=== PATIENT | female | born 1960 | race Caucasian/White ===

== ENCOUNTER 2016-10-19 13:33 | Inpatient (IN) | payer OTHER ==
[2016-10-19] VITALS (8 sets, daily range): BP systolic 128–191; BP diastolic 63–89; PULSE 68–86; RESP 12–20; TEMP 97.9; O2SAT 92–100
[~2016-10-19] VITALS: Ht 165.1 cm; Wt 80.7 kg
[~2016-10-19 13:33] MED LIST: GABA400C5 PO; MACR100C PO; NEXI40CA PO; PHEN-426 PO; SYMB80AE INH; ZOLP1TAB32 PO; [UNRECOGNIZED DRUG - OTHER]
[2016-10-19] MEDS ORDERED: MORPHINE SULFATE 4 MG/ML INJ IV PUSH ONE (13:45)
[2016-10-19] MEDS ORDERED: LORazepam 2 MG/ML VIAL IV PUSH ONE (13:45)
[2016-10-19] MEDS ORDERED: SODIUM CHLORIDE 0.9% FLUSH 5 ML FLUSH IVF PRN ×2 (13:45→16:45)
[2016-10-19] MEDS ORDERED: ONDANSETRON HCL 4 MG/2 ML VIAL IV PUSH ONE (13:45)
[2016-10-19] MEDS ORDERED: CLON1TAB PO (13:46)
[2016-10-19] MEDS ORDERED: VENTAER INH (13:46)
[2016-10-19] MEDS ORDERED: CLON0.5T PO (13:46)
[2016-10-19] MEDS ORDERED: NEXI40CA PO (13:46)
[2016-10-19] MEDS ORDERED: GABA800T PO (13:46)
--- NOTE | 2016-10-19 13:50 | PD ---
HPI Chief Complaint: Fall Time Seen by Provider: 13:46 Travel History International Travel<30 days: No Contact w/Intl Traveler<30days: No Traveled to known affect area: No History of Present Illness HPI Patient comes in complaining of right hip pain status post trip and fall. Patient denies any chest pain pre-or post fall. Denies hitting her head or loss of consciousness. Patient describes pain as severe pain in her right hip that radiates distally. Pain is worse with movement. Patient denies anything making the pain better. Denies any numbness or tingling, loss of bowel or bladder, being on any blood thinners, nausea, vomiting, shortness of breath, or syncope. Patient states that she does have vertigo and this may partially caused her to fall today. Patient was reportedly given 8 mg of morphine IV prior to arrival by EMS with minimal to no relief of her symptoms. PFSH Past Medical History Arthritis: Yes Asthma: Yes Diabetes: No Diminished Hearing: No GERD: Yes Musculoskeletal: Yes Tetanus Vaccination: Unknown ?: Not Past Surgical History Other Surgery: Yes (LEFT BREAST BIOPSY) Social History Alcohol Use: No Tobacco Use: Yes (/2 PPD) Substance Use: No Allergies-Medications (Allergen,Severity, Reaction): Coded Allergies: No Known Allergies (Verified , 10/19/16) Reported Meds & Prescriptions Reported Meds & Active Scripts Active Reported Ventolin Hfa 18 GM Inh (Albuterol Sulfate) 90 Mcg/Act Aer 2 Puff INH Q4-6H PRN Clonazepam 1 Mg Tab 1 Mg PO DAILY Clonazepam 0.5 Mg Tab 0.5 Mg PO HS Nexium (Esomeprazole DR) 40 Mg Capdr 40 Mg PO DAILY Gabapentin 800 Mg Tab 800 Mg PO TID Review of Systems Except as stated in HPI: all other systems reviewed are Neg Physical Exam Narrative GENERAL: Well-developed, overly nourished, in no acute distress, and non-ill appearing. SKIN: Warm and dry. HEAD: Atraumatic. Normocephalic. EYES: Pupils equal and round. EOMI. No scleral icterus. No injection or drainage. ENT: No nasal bleeding or discharge. Mucous membranes pink and moist. NECK: Trachea midline. Supple. No nuclear rigidity. CARDIOVASCULAR: Regular rate and rhythm. No murmur appreciated. Dorsal pulses 2+ and intact and equal bilaterally. No pedal edema. RESPIRATORY: No accessory muscle use. No respiratory distress. Clear to auscultation. Breath sounds equal bilaterally. MUSCULOSKELETAL: No obvious deformities. No clubbing. No cyanosis. No edema. Decreased range of motion right hip secondary to pain. Hip: Pulses equal BL distal to injury. Capillary refill less than 2 seconds distal to injury and equal BL. Sensation intact to her first web space bilateral lower extremities. Dorsal pulses equal BL. Patient reports tenderness to palpation over right hip. Patient will not allow me to fully evaluate her hip and distal to her hip secondary to pain thus limiting this exam. NEUROLOGICAL: Awake and alert. No obvious cranial nerve deficits. Motor grossly within normal limits. Normal speech. PSYCHIATRIC: Appropriate mood and affect; insight and judgment normal. Data Data Last Documented VS Vital Signs Date Time Temp Pulse Resp B/P Pulse Ox O2 Delivery O2 Flow Rate FiO2 10/19/16 16:09 16 10/19/16 16:00 98 Room Air 10/19/16 15:17 74 152/81 10/19/16 13:38 97.9 Orders Hip, Uni(Ap&Lat) W Ap Pelvis (10/19/16 ) Basic Metabolic Panel (Bmp) (10/19/16 13:43) Complete Blood Count With Diff (10/19/16 13:43) Prothrombin Time / Inr (Pt) (10/19/16 13:43) Act Partial Throm Time (Ptt) (10/19/16 13:43) Ecg Monitoring (10/19/16 13:43) Iv Access Insert/Monitor (10/19/16 13:43) Oximetry (10/19/16 13:43) Morphine Inj (Morphine Inj) (10/19/16 13:45) Sodium Chloride 0.9% Flush (Ns Flush) (10/19/16 13:45) Ondansetron Inj (Zofran Inj) (10/19/16 13:45) Lorazepam Inj (Ativan Inj) (10/19/16 13:45) Hydromorphone Pf Inj (Dilaudid Pf Inj) (10/19/16 15:15) Sodium Chlor 0.9% 1000 Ml Inj (Ns 1000 M (10/19/16 15:15) Electrocardiogram (10/19/16 ) Chest, Single Ap (10/19/16 ) Traction (10/19/16 15:37) Consult Orthopedic (10/19/16 ) Hydromorphone Pf Inj (Dilaudid Pf Inj) (10/19/16 16:30) Labs Laboratory Tests Test 10/19/16 14:00 White Blood Count 16.2 TH/MM3 Red Blood Count 4.44 MIL/MM3 Hemoglobin 12.6 GM/DL Hematocrit 38.5 % Mean Corpuscular Volume 86.8 FL Mean Corpuscular Hemoglobin 28.3 PG Mean Corpuscular Hemoglobin 32.6 % Concent Red Cell Distribution Width 14.7 % Platelet Count 359 TH/MM3 Mean Platelet Volume 9.5 FL Neutrophils (%) (Auto) 62.9 % Lymphocytes (%) (Auto) 30.1 % Monocytes (%) (Auto) 5.0 % Eosinophils (%) (Auto) 1.4 % Basophils (%) (Auto) 0.6 % Neutrophils # (Auto) 10.2 TH/MM3 Lymphocytes # (Auto) 4.9 TH/MM3 Monocytes # (Auto) 0.8 TH/MM3 Eosinophils # (Auto) 0.2 TH/MM3 Basophils # (Auto) 0.1 TH/MM3 CBC Comment DIFF FINAL Differential Comment Prothrombin Time 10.6 SEC Prothromb Time International 1.0 RATIO Ratio Activated Partial 26.4 SEC Thromboplast Time Sodium Level 138 MEQ/L Potassium Level 3.9 MEQ/L Chloride Level 104 MEQ/L Carbon Dioxide Level 27.5 MEQ/L Anion Gap 7 MEQ/L Blood Urea Nitrogen 9 MG/DL Creatinine 0.78 MG/DL Estimat Glomerular Filtration 77 ML/MIN Rate Random Glucose 90 MG/DL Calcium Level 8.1 MG/DL MDM Medical Decision Making Medical Screen Exam Complete: Yes Emergency Medical Condition: Yes Differential Diagnosis Fracture, dislocation, contusion, other Narrative Course She was seen and examined. Laboratory and radiological studies were obtained and reviewed. Discussed patient with orthopedics who recommends admission for surgery tomorrow. Discussed patient with hospitalist who agrees to admit the patient. Discussed patient with Dr. Hazel, who is in agreement with plan of care and disposition. Discussed all findings and plan of care with patient who is agreeable for admission. All questions were answered. Physician Communication Physician Communication [phone] Cote's ANN Martins who recommends placement patient 5 pound [place] traction, nothing by mouth after midnight, admit to medicine. Diagnosis Primary Impression: Closed right hip fracture Qualified Code: S72.001A - Closed right hip fracture, initial encounter Admitting Information Admitting Physician Requests: Admit Condition: Stable Farhan Ley Oct 19, 2016 13:50
[2016-10-19 14:47] LABS: AUTOMATED NEUTROPHIL # 10.2 TH/MM3 (1.8-7.7); BASOPHIL # 0.1 TH/MM3 (0-0.2); BASOPHIL % 0.6 % (0.0-2.0); EOSINOPHIL # 0.2 TH/MM3 (0-0.4); EOSINOPHIL % 1.4 % (0.0-4.0); HEMATOCRIT 38.5 % (35.0-46.0); HEMO FLAGS DIFF FINAL; LYMPH % 30.1 % (9.0-44.0); LYMPHOCYTE # 4.9 TH/MM3 (1.0-4.8); MEAN CELL VOLUME 86.8 FL (80.0-100.0); MEAN CORPUSCULAR HEMOGLOBIN 28.3 PG (27.0-34.0); MEAN CORPUSCULAR HGB CONC 32.6 % (32.0-36.0); NEUT % 62.9 % (16.0-70.0); PLATELET COUNT 359 TH/MM3 (150-450); RED BLOOD COUNT 4.44 MIL/MM3 (4.00-5.30); RED CELL DISTRIBUTION WIDTH 14.7 % (11.6-17.2); WHITE BLOOD COUNT 16.2 TH/MM3 (4.0-11.0)
[2016-10-19 14:58] LABS: PROTHROMBIN TIME - PATIENT 10.6 SEC (9.8-11.6)
[2016-10-19 15:15] LABS: BICARBONATE 27.5 MEQ/L (21.0-32.0); POTASSIUM 3.9 MEQ/L (3.5-5.1)
[2016-10-19] MEDS ORDERED: HYDROmorphone HCL PF 1 MG/ML VIAL IV PUSH ONE ×2 (15:15→16:30)
[2016-10-19] MEDS ORDERED: SODIUM CHLOR 0.9% 1000 ML INJ 1,000 ML IV ONE (15:15)
[2016-10-19 15:23] LABS: APTT (PATIENT) 26.4 SEC (24.3-30.1)
--- NOTE | 2016-10-19 15:53 | RADRPT ---
EXAM DATE/TIME: 10/19/2016 14:40 [facility] COMPARISON: No previous studies available for comparison. INDICATIONS : Fell today MEDICAL HISTORY : None. SURGICAL HISTORY : None. ENCOUNTER: Initial ACUITY: 1 day PAIN SCORE: 10/10 LOCATION: Right hip FINDINGS: There is an acute displaced anterior trochanteric fracture of the right proximal femur. CONCLUSION: Acute displaced intertrochanteric fracture of the right proximal femur. Gregory Deleon MD on October 19, 2016 at 15:46 Board Certified Radiologist. This report was verified electronically.
--- NOTE | 2016-10-19 16:30 | RADRPT ---
EXAM DATE/TIME: 10/19/2016 13:50 [facility] COMPARISON: No previous studies available for comparison. INDICATIONS : Evaluate for pneumonia, pneumothorax, or any communicable diseases. MEDICAL HISTORY : None. SURGICAL HISTORY : None. ENCOUNTER: Initial ACUITY: 1 day PAIN SCORE: 0/10 LOCATION: Bilateral chest FINDINGS: The heart is normal. The pulmonary vascular pattern is also normal. The lungs are clear. Scoliosis of the thoracic spine is noted. CONCLUSION: 1. No acute cardiopulmonary disease. 2. Scoliosis of the thoracic spine. Gregory Deleon MD on October 19, 2016 at 16:24 Board Certified Radiologist. This report was verified electronically.
[2016-10-19] MEDS ORDERED: MORPHINE SULFATE 8 MG/ML INJ IV PUSH PRN (16:45)
[2016-10-19] MEDS ORDERED: ONDANSETRON HCL 4 MG/2 ML VIAL IVP PRN (16:45)
[2016-10-19] MEDS ORDERED: diphenhydrAMINE HCL 25 MG CAP PO PRN (16:45)
[2016-10-19] MEDS ORDERED: ACETAMINOPHEN 325 MG TAB PO PRN (16:45)
[2016-10-19] MEDS ORDERED: ALBUTEROL SULFATE 90 MCG/ACT HFA 8 GM INHALER INH PRN (16:45)
[2016-10-19] MEDS ORDERED: NALOXONE HCL 0.4 MG/ML AMP IV PRN (16:45)
--- NOTE | 2016-10-19 16:53 | HHI.HP ---
HPI Service [facility] Primary Care Physician Marquise Vargas MD Admission Diagnosis right hip fracture Diagnoses: Chief Complaint: Hip pain Travel History International Travel<30 Days: No Contact w/Intl Traveler <30 Da: No Traveled to Known Affected Are: No History of Present Illness 56-year-old female with past medical history of OA, asthma, GERD, anxiety who presented with right hip pain after a fall today. The patient states that she was talking to somebody at work today, was walking backwards, tripped and landed on her right hip. She developed immediate, severe pain to her right hip. She denies any other injury, head trauma, or loss of consciousness. She denies any lower extremity numbness or tingling. The pain remained severe and she is requesting more pain medication. She has no other acute medical complaints at this time including nausea, vomiting, chest pain, shortness breath , abdominal pain, fever, chills, cough. Orthopedics was contacted from the ED who recommended admission, Nicole's traction, and plan for surgery tomorrow. Review of Systems Except as stated in HPI: all other systems reviewed are Neg Past Family Social History Past Medical History Lumbar osteoarthritis Asthma GERD Anxiety Past Surgical History History of breast biopsy Reported Medications Ventolin Hfa 18 GM Inh (Albuterol Sulfate) 90 Mcg/Act Aer 2 Puff INH Q4-6H PRN Clonazepam 1 Mg Tab 1 Mg PO DAILY Clonazepam 0.5 Mg Tab 0.5 Mg PO HS Nexium (Esomeprazole DR) 40 Mg Capdr 40 Mg PO DAILY Gabapentin 800 Mg Tab 800 Mg PO TID Allergies: Coded Allergies: No Known Allergies (Verified , 10/19/16) Active Ordered Medications Current Medications Medications (Trade) Dose Ordered Sig/Ashley Route Start Time Stop Time Status Last Admin IV Flush 2 ml 2 ml UNSCH PRN IVF 10/19/16 13:45 (NS 1000 ml Inj) 1,000 ml @ 999 mls/hr BOLUS ONCE IV 10/19/16 15:15 10/19/16 16:15 10/19/16 15:37 (Dilaudid Pf Inj) 0.5 mg ONCE ONCE IV PUSH 10/19/16 16:30 10/19/16 16:31 (Proair Hfa Inh) 2 puff Q4HR PRN INH 10/19/16 16:45 UNV (KlonoPIN) 0.5 mg HS PO 10/19/16 21:00 UNV (KlonoPIN) 1 mg DAILY PO 10/20/16 09:00 UNV (Neurontin) 800 mg TID PO 10/19/16 18:00 UNV Non-Formulary Medication 40 mg DAILY PO 10/20/16 09:00 UNV Family History Reviewed, no family history pertinent to current chief complaint Social History Occasional tobacco use Denies any alcohol or drug use Physical Exam Vital Signs Vital Signs Date Time Temp Pulse Resp B/P Pulse Ox O2 Delivery O2 Flow Rate FiO2 10/19/16 16:09 16 10/19/16 16:00 16 98 Room Air 10/19/16 15:17 74 18 152/81 98 10/19/16 13:46 98 10/19/16 13:38 97.9 82 20 169/89 97 Physical Exam GENERAL: Well-developed well-nourished. In mild to moderate distress secondary to pain. SKIN: Warm and dry. No lesions noted. HEENT: Normocephalic. Pupils equal and round. Mucous membranes pink and moist. CARDIOVASCULAR: Regular rate and rhythm. No murmur appreciated. RESPIRATORY: No accessory muscle use. Clear to auscultation. Breath sounds equal bilaterally. GASTROINTESTINAL: Abdomen soft, non-tender, nondistended. Bowel sounds x4. MUSCULOSKELETAL: Right lower extremity shortened and externally rotated. No clubbing or cyanosis. No edema. PT pulses 2+ bilaterally. NEUROLOGICAL: Awake and alert. No focal neurological deficits. Moves upper and lower extremities spontaneously. Normal speech. Lower extremity sensation grossly intact. PSYCHIATRIC: Appropriate mood and affect; insight and judgment normal. Laboratory Laboratory Tests Test 10/19/16 14:00 White Blood Count 16.2 Red Blood Count 4.44 Hemoglobin 12.6 Hematocrit 38.5 Mean Corpuscular Volume 86.8 Mean Corpuscular Hemoglobin 28.3 Mean Corpuscular Hemoglobin 32.6 Concent Red Cell Distribution Width 14.7 Platelet Count 359 Mean Platelet Volume 9.5 Neutrophils (%) (Auto) 62.9 Lymphocytes (%) (Auto) 30.1 Monocytes (%) (Auto) 5.0 Eosinophils (%) (Auto) 1.4 Basophils (%) (Auto) 0.6 Neutrophils # (Auto) 10.2 Lymphocytes # (Auto) 4.9 Monocytes # (Auto) 0.8 Eosinophils # (Auto) 0.2 Basophils # (Auto) 0.1 CBC Comment DIFF FINAL Differential Comment Prothrombin Time 10.6 Prothromb Time International 1.0 Ratio Activated Partial 26.4 Thromboplast Time Sodium Level 138 Potassium Level 3.9 Chloride Level 104 Carbon Dioxide Level 27.5 Anion Gap 7 Blood Urea Nitrogen 9 Creatinine 0.78 Estimat Glomerular Filtration 77 Rate Random Glucose 90 Calcium Level 8.1 Result Diagram: 10/19/16 1400 10/19/16 1400 Assessment and Plan Problem List: (1) Closed right hip fracture ICD Code: S72.001A Status: Acute Assessment and Plan 56-year-old female with past medical history of OA, asthma, GERD, anxiety who presented with right hip pain after a fall Right hip fracture: Image reviewed: Right hip x-ray shows displaced intertrochanteric fracture of the right proximal femur. -Orthopedics were consulted, planning for surgical repair tomorrow, nothing by mouth after midnight, Nicoel's traction -Pain control with oral and intravenous narcotics as needed with a bowel regimen -IVF while nothing by mouth Chronic back pain secondary to lumbar CR arthritis: Continue home gabapentin. Asthma: Chronic, stable. Continue albuterol MDI as needed. O2 as needed. Anxiety: Chronic, stable. Continue Klonopin. GERD: Chronic, stable. Continue PPI. DVT prophylaxis: Per surgery. Written by Lazaro Matos, acting as scribe for Dr. Bella on 10/19/16 at 16:52. The documentation accurately reflects the work performed [id number] by me on at 16:52. Discussed Condition With Patient with and niece at bedside, ED PA Problem Qualifiers (1) Closed right hip fracture: Qualified Code: S72.001A - Closed right hip fracture, initial encounter Lazaro Matos Oct 19, 2016 16:53 Sb Bella MD Oct 19, 2016 17:07
[2016-10-19] MEDS: SODIUM CHLOR 0.9% 1000 ML INJ 1,000 ML IV SCH (17:00)
[2016-10-19] MEDS: GABAPENTIN 400 MG CAP PO SCH (17:46)
[2016-10-19] MEDS: SODIUM CHLORIDE 0.9% FLUSH 5 ML FLUSH IVF SCH (21:00)
[2016-10-19] MEDS: ACETAMINOPHEN/HYDROcodone 325 MG/5 MG TAB PO PRN (21:46)
[2016-10-19] MEDS: clonazePAM 0.5 MG TAB PO SCH (21:58)
[2016-10-19] MEDS: DOCUSATE SODIUM 100 MG CAP PO SCH (21:59)
[2016-10-20] VITALS (8 sets, daily range): BP systolic 118–170; BP diastolic 58–92; PULSE 86–100; RESP 13–20; TEMP 97.4–99.7; O2SAT 94–98
[2016-10-20 04:21] LABS: AUTOMATED NEUTROPHIL # 5.6 TH/MM3 (1.8-7.7); BASOPHIL # 0.1 TH/MM3 (0-0.2); BASOPHIL % 0.5 % (0.0-2.0); EOSINOPHIL # 0.4 TH/MM3 (0-0.4); EOSINOPHIL % 3.7 % (0.0-4.0); HEMATOCRIT 33.3 % (35.0-46.0); HEMO FLAGS DIFF FINAL; LYMPH % 37.4 % (9.0-44.0); LYMPHOCYTE # 4.2 TH/MM3 (1.0-4.8); MEAN CELL VOLUME 85.8 FL (80.0-100.0); MEAN CORPUSCULAR HEMOGLOBIN 28.5 PG (27.0-34.0); MEAN CORPUSCULAR HGB CONC 33.2 % (32.0-36.0); MONO % 8.8 % (0.0-8.0); NEUT % 49.6 % (16.0-70.0); PLATELET COUNT 277 TH/MM3 (150-450); RED BLOOD COUNT 3.87 MIL/MM3 (4.00-5.30); RED CELL DISTRIBUTION WIDTH 14.5 % (11.6-17.2); WHITE BLOOD COUNT 11.3 TH/MM3 (4.0-11.0)
[2016-10-20 04:42] LABS: BICARBONATE 28.6 MEQ/L (21.0-32.0); POTASSIUM 3.7 MEQ/L (3.5-5.1)
[2016-10-20] MEDS ORDERED: GENTAMICIN SULFATE 80 MG/2 ML VIAL ONE (06:52)
[2016-10-20] MEDS ORDERED: SODIUM CHLOR 0.9% 250 ML INJ 250 ML ONE (06:53)
[2016-10-20] MEDS ORDERED: VANCOMYCIN HCL 1000 MG VIAL ONE (06:53)
[2016-10-20] MEDS ORDERED: DEXAMETHASONE SOD PHOS 4 MG/ML VIAL ONE (07:15)
[2016-10-20] MEDS ORDERED: FAMOTIDINE 20 MG/2 ML VIAL ONE (07:15)
[2016-10-20] MEDS ORDERED: MIDAZOLAM HCL 5 MG/5 ML VIAL ONE (07:15)
[2016-10-20] MEDS ORDERED: MIDAZOLAM HCL 2 MG/2 ML VIAL ONE (08:28)
[2016-10-20] MEDS: GABAPENTIN 400 MG CAP PO SCH ×4 (09:00→16:50)
[2016-10-20] MEDS: PANTOPRAZOLE SOD 40 MG DELAYED RELEASE TAB PO SCH (09:00)
[2016-10-20] MEDS: DOCUSATE SODIUM 100 MG CAP PO SCH ×2 (09:00→19:18)
[2016-10-20] MEDS ORDERED: ceFAZolin INJ 1,000 MG VIAL ONE (09:13)
[2016-10-20] MEDS ORDERED: BUPIVACAINE/EPINEPHRINE 0.25% PF 30 ML VIAL ONE (09:20)
[2016-10-20] MEDS ORDERED: HYDR-3288 PO (09:29)
[2016-10-20] MEDS ORDERED: WALKER WHEELS/F1 MIS (09:29)
[2016-10-20] MEDS ORDERED: XARE10TA PO (09:29)
[2016-10-20] MEDS ORDERED: ACETAMINOPHEN/HYDROcodone 325 MG/7.5 MG TAB PO PRN ×2 (10:00)
[2016-10-20] MEDS ORDERED: SODIUM CHLORIDE 0.9% FLUSH 5 ML FLUSH IVF PRN (10:00)
--- NOTE | 2016-10-20 10:01 | PD.ORT.PN ---
Subjective Subjective Remarks Postoperative day 0 status post right hip troch nail for intertrochanteric fracture with femoral neck fracture Objective Vitals Vital Signs Date Time Temp Pulse Resp B/P Pulse Ox O2 Delivery O2 Flow Rate FiO2 10/20/16 06:53 94 18 157/71 94 Nasal Cannula 2 10/20/16 06:47 94 20 170/92 94 Nasal Cannula 2 10/20/16 05:33 93 15 128/74 94 Nasal Cannula 2 10/20/16 01:17 100 18 118/58 94 Nasal Cannula 2 10/19/16 19:52 92 Nasal Cannula 2.00 10/19/16 19:01 92 12 2 Nasal Cannula 10/19/16 18:58 86 12 130/73 95 Nasal Cannula 2 10/19/16 18:00 68 16 128/63 98 Nasal Cannula 2 10/19/16 17:35 16 10/19/16 17:00 86 16 154/84 99 Nasal Cannula 2 10/19/16 16:45 98 Nasal Cannula 2 10/19/16 16:09 16 10/19/16 16:00 16 98 Room Air 10/19/16 16:00 78 18 191/79 100 Room Air 10/19/16 15:17 74 18 152/81 98 10/19/16 13:46 98 10/19/16 13:38 97.9 82 20 169/89 97 Result Diagram: 10/20/16 0340 10/20/16 0340 Other Results Laboratory Tests Test 10/19/16 14:00 Prothrombin Time 10.6 SEC (9.8-11.6) Prothromb Time International 1.0 RATIO Ratio Objective Remarks Patient is awake and alert. Clean dry dressing in place. Neurovascular intact right leg Assessment & Plan Assessment and Plan Toe-touch weightbearing Lovenox/Xarelto Case management for discharge planning home versus SNF Prescriptions on chart Jarad Bess MD Oct 20, 2016 10:01
--- NOTE | 2016-10-20 10:04 | PD.OP ---
cc: Jarad Cote MD Operative Report Date of Surgery: Oct 20, 2016 Preoperative Diagnosis: Right hip intertrochanteric fracture, right femoral neck fracture Postoperative Diagnosis: Same Procedure: Right hip reduction and intramedullary nail fixation Anesthesia: Gen. Surgeon: Jarad Cote Transfer Knitter(s): CHANEL Traylor PA-C The surgical procedure was assisted by my physician therapy assistant. My P.A. presence was necessary throughout this case for the manipulation and positioning of the surgical extremity. My P.A. was assisting me throughout the duration of this procedure. The skill set of a physician therapy assistant was medically necessary to complete this procedure. During the surgical case the prosthetics lab technician was working at the back table and the physician therapy assistant was directly assisting me. Operation and Findings: Implants used: [10]mm Synthes TFNA intermediate 125 troch nail Plan of activity: Toe-touch weightbearing Patient was seen and evaluated preoperatively. The patient has significant hip pain from intertrochanteric hip fracture with nondisplaced femoral neck fracture. The risk and benefits of surgery were discussed in depth with the patient to include bleeding infection nonunion malunion and need for hip replacement painful hardware as well as medical competitions including but not stroke heart attack and . Informed consent was obtained. Operative site was marked. Patient was brought to the operating room and placed on fracture table. IV sedation was administered by anesthesiologist. Timeout procedure was performed. Hip and leg were prepped with alcohol followed by DuraPrep and draped in the usual sterile fashion. IV antibiotics were given prior to incision. Procedure began with reduction of fracture. Traction was applied. The leg was manipulated to achieve reduction. Excellent reduction was achieved. Fluoroscopy was used to confirm reduction. A three inch incision was made proximal to the trochanter. Subcutaneous tissue was dissected bluntly. Guidepin was placed at the tip of the trochanter and advanced into the femoral canal. Fluoroscopy confirmed appropriate guidepin placement. A opening reamer was placed over the guidepin. The Synthes TFNA nail was attached to the insertion handle. Nail was now placed through the tip of the trochanter into the femoral canal. Fluoroscopy confirmed appropriate nail placement. A second incision was made over the lateral thigh. Cannulas were placed through the insertion handle down to the femur. Guidepin was now placed through the femoral nail into the center of the femoral head. Fluoroscopy confirmed appropriate guidepin placement. Screw length was measured. Cannulated drill was placed over the guidepin. Appropriate length lag screw was now placed. Traction was released and compression was applied. The set screw was now tightened in dynamic mode. At this point attempt was made to put an additional anti-rotational screw across the femoral neck fracture. Because of patient's relatively small femur diameter, I was unable to safely place additional screw across femoral neck fracture. Using the insertion handle as a guide a distal interlocking screw was drilled and placed. Final fluoroscopy revealed well aligned fracture with well-placed hardware. Incision was closed with 3-0 Vicryl and portillo. Sterile dressings were applied. Patient was awakened and transferred to recovery room. Jarad Cote MD Oct 20, 2016 10:04
[2016-10-20] MEDS ORDERED: fentaNYL CITRATE 250 MCG/5 ML AMP ONE (10:26)
[2016-10-20] MEDS ORDERED: *morphine SULFATE 8 MG/ML PERIprocedure ONLY ONE (10:30)
[2016-10-20] MEDS ORDERED: *diphenhydrAMINE HCL 50 MG/ML VIAL PERIprocedural Use ONLY ONE (10:34)
[2016-10-20] MEDS ORDERED: DO NOT ADM ANY ANTICOAGULANT DRUGS XX PRN (10:45)
[2016-10-20] MEDS ORDERED: ERGOCALCIFEROL (VIT D2) 50,000 UNIT CAP PO ONE (11:00)
--- NOTE | 2016-10-20 12:01 | PD.ORT.PN ---
Subjective Subjective Remarks POD #0 s/p IMN right hip Objective Vitals Vital Signs Date Time Temp Pulse Resp B/P Pulse Ox O2 Delivery O2 Flow Rate FiO2 10/20/16 10:45 90 12 130/79 98 Nasal Cannula 4 10/20/16 10:30 102 12 162/82 96 Nasal Cannula 4 10/20/16 10:17 98.3 101 12 147/99 96 Nasal Cannula 4 10/20/16 06:53 94 18 157/71 94 Nasal Cannula 2 10/20/16 06:47 94 20 170/92 94 Nasal Cannula 2 10/20/16 05:33 93 15 128/74 94 Nasal Cannula 2 10/20/16 01:17 100 18 118/58 94 Nasal Cannula 2 10/19/16 19:52 92 Nasal Cannula 2.00 10/19/16 19:01 92 12 2 Nasal Cannula 10/19/16 18:58 86 12 130/73 95 Nasal Cannula 2 10/19/16 18:00 68 16 128/63 98 Nasal Cannula 2 10/19/16 17:35 16 10/19/16 17:00 86 16 154/84 99 Nasal Cannula 2 10/19/16 16:45 98 Nasal Cannula 2 10/19/16 16:09 16 10/19/16 16:00 16 98 Room Air 10/19/16 16:00 78 18 191/79 100 Room Air 10/19/16 15:17 74 18 152/81 98 10/19/16 13:46 98 10/19/16 13:38 97.9 82 20 169/89 97 I/O 10/19/16 10/19/16 10/19/16 10/20/16 10/20/16 10/20/16 07:00 15:00 23:00 07:00 15:00 23:00 Intake Total 900 ml Output Total 750 ml Balance 150 ml Intake Other 900 ml Output Urine Total 700 ml Estimated Blood Loss 50 ml Result Diagram: 10/20/16 0340 10/20/16 034 Other Results Laboratory Tests Test 10/19/16 14:00 Prothrombin Time 10.6 SEC (9.8-11.6) Prothromb Time International 1.0 RATIO Ratio Objective Remarks RLE: dressings clean and dry. intact Assessment & Plan Assessment and Plan 1) Right Intertroch fx s/p IMN - POD 0 Toe-touch weightbearing Lovenox/Xarelto Case management for discharge planning home versus SNF plan for DC sun/mon Prescriptions on chart f/u with Shahriar or ANN in 2 weeks Eliezer Melendez Oct 20, 2016 12:00
[2016-10-20] MEDS ORDERED: VITA200012 PO (12:20)
[2016-10-20] MEDS ORDERED: ERGO1CAP10 PO (12:20)
--- NOTE | 2016-10-20 12:23 | MB ---
cc: MIRZA CHINO DATE OF CONSULTATION: 10/20/2016 REASON FOR CONSULTATION Right proximal femur fractures. HISTORY OF PRESENT ILLNESS Ms. Owen is a 56-year-old female who has a history of asthma, osteoarthritis, reflux and anxiety. She had a fall. She was at work when she was walking backwards and fell. She landed on her right hip. She had immediate right hip pain. She did not hit her head. She had no loss of consciousness. She describes a mechanical fall. She denies dizziness, syncope or loss of consciousness. She presented to the emergency room where x-rays revealed a displaced proximal femur fracture. She is currently awake and alert in the emergency department. Pain is worse with movement and is improved with rest. PAST MEDICAL HISTORY ILLNESSES 1. Osteoarthritis. 2. Asthma. 3. Reflux. 4. Anxiety. SURGERIES Breast biopsy. MEDICATIONS 1. Ventolin. 2. Clonazepam. 3. Nexium. 4. Gabapentin. ALLERGIES No known drug allergies. FAMILY HISTORY Noncontributory. She denies any familial medical problems. SOCIAL HISTORY The patient denies tobacco or drug use. She drinks alcohol socially. REVIEW OF SYSTEMS The patient denies headache, visual changes, neck pain, chest pain, shortness of breath, abdominal pain, nausea, vomiting or recent weight loss. She complains of right hip and thigh pain. Pain is worse with movement. PHYSICAL EXAMINATION GENERAL: The patient is a well-developed, well-nourished 56-year-old female who is awake and alert. She is alert and oriented x3. VITAL SIGNS: Temperature 97.9, pulse 94, respirations 18, blood pressure 157/71. O2 sat is 94% on two liter nasal cannula. HEAD: The patient is normocephalic. Pupils are equal. NECK: Soft, nontender. Trachea is midline. ABDOMEN: Soft, nontender, nondistended. EXTREMITIES: Examination of bilateral upper extremities reveals no pain with shoulder, elbow or wrist motion bilaterally. Radial pulses are palpable bilaterally. Sensation is intact in radial, ulnar and median nerve distributions bilaterally. 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 Skin is intact in both hands. Examination of left leg reveals no pain with hip, knee or ankle motion. Skin is intact. Dorsalis pedis pulse is palpable. Sensation is intact. She has +5 strength in ankle dorsiflexion and plantar flexion. Examination of the right leg reveals diffuse pain around her right hip. She has pain with any hip motion. She has minimal tenderness directly around her knee tibia or ankle. Skin is intact. Sensation is intact in the right foot. Calf and thigh compartments are soft. Dorsalis pedis pulse is palpable. X-RAYS X-rays of the right hip were reviewed. X-rays reveal a displaced right hip intertrochanteric fracture. There also appears to be a nondisplaced femoral neck fracture. IMPRESSION 1. Asthma. 2. Osteoarthritis. 3. Displaced right hip intertrochanteric fracture. 4. Nondisplaced right femoral neck fracture. PLAN The treatment options were discussed with the patient. At this point I would recommend reduction and intramedullary nail fixation of right hip fractures. The risks of surgery include bleeding, infection, injuries to arteries, nerves and blood vessels, nonunion, malunion, painful hardware, avascular necrosis, need for hip replacement, painful hardware, as well as medical complications including blood clot, stroke, heart attack and . I will plan on surgery today. All questions were answered. A mid-level provider in my office (nurse practitioner or physician assistant store leader) may see this patient on follow-up visits and continue to implement the objectives of this plan including: Starting or adjusting medications, injections , cast application, orthotics, brace application, physical therapy, radiological studies (including x-ray, MRI, CT, ultrasound, bone scan), vascular studies, neurologic studies, specialist consultation, and proceeding with surgical management, as appropriate. MD DREA Chávez/ALEX /10:07 AM /12:11 PM ANTONIO
[2016-10-20] MEDS: CALCIUM/VITAMIN D 250 MG/125 U TAB PO SCH ×2 (13:00→18:37)
[2016-10-20] MEDS ORDERED: ONDANSETRON HCL 4 MG/2 ML VIAL IV PUSH ONE (13:37)
[2016-10-20] MEDS ORDERED: LACTATED RINGER'S 1000 ML INJ 1,000 ML IV ONE (13:37)
[2016-10-20] MEDS ORDERED: PROPOFOL 200 MG/20 ML AMP IV ONE (13:37)
[2016-10-20] MEDS ORDERED: ePHEDrine/NS 25 MG/5 ML SYR IV ONE (13:37)
--- NOTE | 2016-10-20 13:39 | RADRPT ---
EXAM DATE/TIME: 10/20/2016 09:54 [place] COMPARISON: No previous studies available for comparison. INDICATIONS : ORIF right hip troch nail. MEDICAL HISTORY : None. SURGICAL HISTORY : None. ENCOUNTER: Subsequent ACUITY: 2 days PAIN SCORE: Non-responsive. LOCATION: Right hip. FINDINGS: Alignment is anatomic following a troch nail on the right. Distal fracture is not appreciated. CONCLUSION: Anatomic alignment. Noel Holland MD FACR on October 20, 2016 at 13:24 Board Certified Radiologist. This report was verified electronically.
--- NOTE | 2016-10-20 14:24 | HHI.PR ---
Subjective Remarks Follow-up right hip fracture 10/20/16-patient had open reduction internal fixations of right hip, currently stable and pain control. Objective Vitals Vital Signs Date Time Temp Pulse Resp B/P Pulse Ox O2 Delivery O2 Flow Rate FiO2 10/20/16 14:12 97.4 89 15 130/62 94 10/20/16 10:45 90 12 130/79 98 Nasal Cannula 4 10/20/16 10:30 102 12 162/82 96 Nasal Cannula 4 10/20/16 10:17 98.3 101 12 147/99 96 Nasal Cannula 4 10/20/16 06:53 94 18 157/71 94 Nasal Cannula 2 10/20/16 06:47 94 20 170/92 94 Nasal Cannula 2 10/20/16 05:33 93 15 128/74 94 Nasal Cannula 2 10/20/16 01:17 100 18 118/58 94 Nasal Cannula 2 10/19/16 19:52 92 Nasal Cannula 2.00 10/19/16 19:01 92 12 2 Nasal Cannula 10/19/16 18:58 86 12 130/73 95 Nasal Cannula 2 10/19/16 18:00 68 16 128/63 98 Nasal Cannula 2 10/19/16 17:35 16 10/19/16 17:00 86 16 154/84 99 Nasal Cannula 2 10/19/16 16:45 98 Nasal Cannula 2 10/19/16 16:09 16 10/19/16 16:00 16 98 Room Air 10/19/16 16:00 78 18 191/79 100 Room Air 10/19/16 15:17 74 18 152/81 98 I/O 10/19/16 10/19/16 10/19/16 10/20/16 10/20/16 10/20/16 06:59 14:59 22:59 06:59 14:59 22:59 Intake Total 900 ml Output Total 1350 ml Balance -450 ml Intake Other 900 ml Output Urine Total 1300 ml Estimated Blood Loss 50 ml Result Diagram: 10/20/1633910/20/16 034 Imaging Last Impressions Hip and Pelvis X-Ray 10/19/16 0000 Signed Impressions: Service Date/Time: October 14:40 - CONCLUSION: Acute displaced intertrochanteric fracture of the right proximal femur. Gregory Deleon MD Chest X-Ray 10/19/16 0000 Signed Impressions: Service Date/Time: October 13:50 - CONCLUSION: 1. No acute cardiopulmonary disease. 2. Scoliosis of the thoracic spine. Gregory Deleon MD Objective Remarks GENERAL: NAD SKIN: Warm and dry. HEAD: Normocephalic. EYES: No scleral icterus. No injection or drainage. NECK: Supple, trachea midline. No JVD or lymphadenopathy. CARDIOVASCULAR: Regular rate and rhythm without murmurs, gallops, or rubs. RESPIRATORY: Breath sounds equal bilaterally. No accessory muscle use. GASTROINTESTINAL: Abdomen soft, non-tender, nondistended. MUSCULOSKELETAL: No cyanosis, or edema. right hip repair-neurovascular intact BACK: Nontender without obvious deformity. No CVA tenderness. Procedures Right hip reduction and intramedullary nail fixation 10/20/16 A/P Problem List: (1) Closed right hip fracture ICD Code: S72.001A Status: Acute Assessment and Plan Right hip fracture:s/p Right hip reduction and intramedullary nail fixation 06/26. Management per orthopedic surgery, continue current postoperative care. PT to treat and eval. Incentive spirometer at bedside. Chronic back pain secondary to lumbar CR arthritis: Continue home gabapentin. Asthma: Chronic, stable. Continue albuterol MDI as needed. O2 as needed. Anxiety: Chronic, stable. Continue Klonopin. GERD: Chronic, stable. Continue PPI. DVT prophylaxis: Lovenox Problem Qualifiers (1) Closed right hip fracture: Qualified Code: S72.001A - Closed right hip fracture, initial encounter Sb Bella MD Oct 20, 2016 14:24
[2016-10-20] MEDS: SODIUM CHLOR 0.9% 1000 ML INJ 1,000 ML IV SCH ×2 (15:22→19:17)
[2016-10-20] MEDS: clonazePAM 1 MG TAB PO SCH (15:28)
[2016-10-20] MEDS: SODIUM CHLORIDE 0.9% FLUSH 5 ML FLUSH IVF SCH ×3 (15:31→19:19)
--- NOTE | 2016-10-20 16:50 | EKG ---
Date Performed: 10/20/2016 Time Performed: 07:20:54 PTAGE: 56 years EKG: Sinus rhythm MARKED LEFT AXIS DEVIATION INCOMPLETE RIGHT BUNDLE BRANCH BLOCK ABNORMAL ECG NO PREVIOUS TRACING DOCTOR: Sheldon Vargas Interpretating Date/Time 10/20/2016 16:49:27
[2016-10-20] MEDS: MAGNESIUM HYDROXIDE SUSP 30 ML CUP PO PRN (19:18)
[2016-10-20] MEDS: clonazePAM 0.5 MG TAB PO SCH (19:18)
[2016-10-20] MEDS: ACETAMINOPHEN/HYDROcodone 325 MG/5 MG TAB PO PRN ×2 (19:18→23:34)
[2016-10-21] VITALS (7 sets, daily range): BP systolic 107–145; BP diastolic 56–70; PULSE 81–93; RESP 16–20; TEMP 96.7–98.7; O2SAT 93–100
[2016-10-21 07:07] LABS: HEMATOCRIT 27.2 % (35.0-46.0); REVIEW FLAG FINAL
[2016-10-21] MEDS: MORPHINE SULFATE 4 MG/ML INJ IV PUSH PRN ×2 (07:33→18:25)
[2016-10-21] MEDS: GABAPENTIN 400 MG CAP PO SCH ×3 (09:00→17:04)
[2016-10-21] MEDS: SODIUM CHLORIDE 0.9% FLUSH 5 ML FLUSH IVF SCH ×4 (09:00→21:04)
--- NOTE | 2016-10-21 09:15 | PD.ORT.PN ---
Subjective Post Op Day #: 1 Subjective Remarks Pt sitting upright in chair, accompanied by her . She admits to mild pain in right lower extremity - expected post operative day 1. No other complaints noted. Objective Vitals Vital Signs Date Time Temp Pulse Resp B/P Pulse Ox O2 Delivery O2 Flow Rate FiO2 10/21/16 08:00 96.7 82 16 117/57 93 10/21/16 04:00 98.1 81 20 118/59 100 10/21/16 00:00 98.7 86 16 129/59 99 10/20/16 19:59 99.7 98 16 124/59 98 10/20/16 19:15 98 Nasal Cannula 3.00 10/20/16 18:21 94 21 10/20/16 16:00 97.5 86 13 126/68 94 10/20/16 14:12 97.4 89 15 130/62 94 10/20/16 13:30 98.1 89 12 125/81 98 Nasal Cannula 3 10/20/16 13:00 89 12 132/76 98 Nasal Cannula 3 10/20/16 12:30 83 12 126/71 97 Nasal Cannula 3 10/20/16 12:00 98 12 149/53 96 Nasal Cannula 3 10/20/16 11:30 86 12 118/59 96 Nasal Cannula 3 10/20/16 11:15 97 12 147/83 96 Nasal Cannula 3 10/20/16 11:00 91 12 143/77 97 Nasal Cannula 3 10/20/16 10:45 90 12 130/79 98 Nasal Cannula 4 10/20/16 10:30 102 12 162/82 96 Nasal Cannula 4 10/20/16 10:17 98.3 101 12 147/99 96 Nasal Cannula 4 I/O 10/20/16 10/20/16 10/20/16 10/21/16 10/21/16 10/21/16 07:00 15:00 23:00 07:00 15:00 23:00 Intake Total 1140 ml 1589 ml 1281 ml Output Total 1950 ml 1650 ml 900 ml Balance -810 ml -61 ml 381 ml Intake Oral 240 ml 1180 ml 480 ml IV Total 409 ml 801 ml Other 900 ml Output Urine Total 1900 ml 1650 ml 900 ml Estimated Blood Loss 50 ml Result Diagram: 10/21/16 0550 10/20/16 0340 Imaging Last 48 hours Impressions Hip X-Ray 2/10/17 0000 Signed Impressions: Service Date/Time: Thursday, October 20, 2016 09:54 - CONCLUSION: Anatomic alignment. Noel Holland MD FACR Procedures Right hip reduction and intramedullary nail fixation Objective Remarks RLE: dressings clean and dry. intact, small area of saturation noted proximally. Mild swelling and tenderness over right thigh/hip. No calf pain. Negative Herb's sign. Neurovascular intact. Assessment & Plan Ortho Post Op Day #: 1 Problem List: (1) Closed right hip fracture Assessment and Plan 1) Right Intertroch fx s/p IMN - POD 1 Toe-touch weightbearing Lovenox/Xarelto for DVT prophylaxis Case management for discharge planning home versus SNF Continue with pain management and progress rehabilitation. plan for DC sun/mon Prescriptions on chart f/u with [facility]riar or [facility] in 2 weeks Raine Morales Oct 21, 2016 09:15
[2016-10-21] MEDS: PANTOPRAZOLE SOD 40 MG DELAYED RELEASE TAB PO SCH (09:16)
[2016-10-21] MEDS: CHOLECALCIFEROL (VIT D3) 5000 UNIT CAP PO SCH (09:16)
[2016-10-21] MEDS: DOCUSATE SODIUM 100 MG CAP PO SCH ×2 (09:16→21:10)
[2016-10-21] MEDS: clonazePAM 1 MG TAB PO SCH (09:17)
[2016-10-21] MEDS: CALCIUM/VITAMIN D 250 MG/125 U TAB PO SCH ×3 (09:17→17:03)
[2016-10-21] MEDS: ENOXAPARIN SODIUM 30 MG/0.3 ML SYRINGE SQ SCH (09:18)
[2016-10-21] MEDS: SODIUM CHLOR 0.9% 1000 ML INJ 1,000 ML IV SCH ×2 (11:54→22:55)
[2016-10-21] MEDS: ACETAMINOPHEN/HYDROcodone 325 MG/5 MG TAB PO PRN ×3 (12:12→21:10)
--- NOTE | 2016-10-21 13:57 | HHI.PR ---
Subjective Remarks Follow-up right hip fracture 10/20/16-patient had open reduction internal fixations of right hip, currently stable and pain control. 10/21/16-patient seen and examined, stable. Afebrile. Objective Vitals Vital Signs Date Time Temp Pulse Resp B/P Pulse Ox O2 Delivery O2 Flow Rate FiO2 10/21/16 12:00 98.4 89 19 145/65 93 10/21/16 10:29 94 21 10/21/16 09:10 Room Air 10/21/16 08:00 96.7 82 16 117/57 93 10/21/16 04:00 98.1 81 20 118/59 100 10/21/16 00:00 98.7 86 16 129/59 99 10/20/16 19:59 99.7 98 16 124/59 98 10/20/16 19:15 98 Nasal Cannula 3.00 10/20/16 18:21 94 21 10/20/16 16:00 97.5 86 13 126/68 94 10/20/16 14:12 97.4 89 15 130/62 94 I/O 10/20/16 10/20/16 10/20/16 10/21/16 10/21/16 10/21/16 07:00 15:00 23:00 07:00 15:00 23:00 Intake Total 1140 ml 1589 ml 1281 ml Output Total 1950 ml 1650 ml 900 ml Balance -810 ml -61 ml 381 ml Intake Oral 240 ml 1180 ml 480 ml IV Total 409 ml 801 ml Other 900 ml Output Urine Total 1900 ml 1650 ml 900 ml Estimated Blood Loss 50 ml Result Diagram: 10/21/16 0550 10/20/16 0340 Objective Remarks GENERAL: NAD SKIN: Warm and dry. HEAD: Normocephalic. EYES: No scleral icterus. No injection or drainage. NECK: Supple, trachea midline. No JVD or lymphadenopathy. CARDIOVASCULAR: Regular rate and rhythm without murmurs, gallops, or rubs. RESPIRATORY: Breath sounds equal bilaterally. No accessory muscle use. GASTROINTESTINAL: Abdomen soft, non-tender, nondistended. MUSCULOSKELETAL: No cyanosis, or edema. right hip repair-neurovascular intact BACK: Nontender without obvious deformity. No CVA tenderness. Procedures Right hip reduction and intramedullary nail fixation 10/20/16 A/P Problem List: (1) Closed right hip fracture ICD Code: S72.001A Status: Acute Assessment and Plan Right hip fracture:s/p Right hip reduction and intramedullary nail fixation 06/26. Management per orthopedic surgery, continue current postoperative care. PT to treat and eval. Incentive spirometer at bedside. Toe-touch weightbearing Chronic back pain secondary to lumbar CR arthritis: Continue home gabapentin. Asthma: Chronic, stable. Continue albuterol MDI as needed. O2 as needed. Anxiety: Chronic, stable. Continue Klonopin. GERD: Chronic, stable. Continue PPI. DVT prophylaxis: Lovenox Problem Qualifiers (1) Closed right hip fracture: Qualified Code: S72.001A - Closed right hip fracture, initial encounter Sb Bella MD Oct 21, 2016 13:57
[2016-10-21] MEDS: clonazePAM 0.5 MG TAB PO SCH (21:10)
[2016-10-22] VITALS: BP 126/58; PULSE 90; RESP 16; TEMP 98.9; O2SAT 92
[2016-10-22] MEDS: ACETAMINOPHEN/HYDROcodone 325 MG/5 MG TAB PO PRN (01:24)
[2016-10-22] MEDS: MORPHINE SULFATE 4 MG/ML INJ IV PUSH PRN (01:40)
[2016-10-22 08:00] VITALS: BP 114/56; PULSE 89; RESP 18; TEMP 98.3; O2SAT 93
[2016-10-22] MEDS: ENOXAPARIN SODIUM 30 MG/0.3 ML SYRINGE SQ SCH (08:03)
[2016-10-22] MEDS: MAGNESIUM HYDROXIDE SUSP 30 ML CUP PO PRN (08:04)
[2016-10-22] MEDS: clonazePAM 1 MG TAB PO SCH (08:04)
[2016-10-22] MEDS: CHOLECALCIFEROL (VIT D3) 5000 UNIT CAP PO SCH (08:04)
[2016-10-22] MEDS: GABAPENTIN 400 MG CAP PO SCH ×3 (08:04→16:32)
[2016-10-22] MEDS: PANTOPRAZOLE SOD 40 MG DELAYED RELEASE TAB PO SCH (08:05)
[2016-10-22] MEDS: DOCUSATE SODIUM 100 MG CAP PO SCH ×2 (08:05→21:13)
[2016-10-22] MEDS: CALCIUM/VITAMIN D 250 MG/125 U TAB PO SCH ×3 (08:05→16:32)
--- NOTE | 2016-10-22 08:06 | PD.ORT.PN ---
Subjective Post Op Day #: 2 Subjective Remarks Pt sitting in bed, answering questions appropriately. She admits to pain still not well controlled in right hip. Admits she has not tried walking with walker yet. No other complaints noted. Objective Vitals Vital Signs Date Time Temp Pulse Resp B/P Pulse Ox O2 Delivery O2 Flow Rate FiO2 10/22/16 00:00 98.9 90 16 126/58 92 10/21/16 20:00 98.6 93 18 138/70 97 10/21/16 16:00 96.9 85 18 107/56 94 10/21/16 12:00 98.4 89 19 145/65 93 10/21/16 10:29 94 21 10/21/16 09:10 Room Air I/O 10/21/16 10/21/16 10/21/16 10/22/16 10/22/16 10/22/16 07:00 15:00 23:00 07:00 15:00 23:00 Intake Total 1281 ml 1265 ml 780 ml 480 ml Output Total 900 ml 900 ml Balance 381 ml 365 ml 780 ml 480 ml Intake Oral 480 ml 720 ml 780 ml 480 ml IV Total 801 ml 545 ml Output Urine Total 900 ml 900 ml # Voids 3 2 3 # Bowel Movements 0 0 Result Diagram: 10/21/16 0550 10/20/16 0340 Imaging Last 48 hours Impressions Hip X-Ray 10/20/16 0000 Signed Impressions: Service Date/Time: Thursday, October 20, 2016 09:54 - CONCLUSION: Anatomic alignment. Noel Holland MD FACR Procedures Right hip reduction and intramedullary nail fixation Objective Remarks RLE: dressings clean and dry. intact, no area of saturation. Mild swelling and tenderness over right thigh/hip. No calf pain. Negative Herb's sign. Neurovascular intact. Assessment & Plan Ortho Post Op Day #: 2 Problem List: (1) Closed right hip fracture Assessment and Plan 1) Right Intertroch fx s/p IMN - POD #2 Toe-touch weightbearing Lovenox/Xarelto for DVT prophylaxis Case management for discharge planning home versus SNF Pain medication adjusted - oxycodone 7.5mg Q4 Progress rehabilitation. plan for DC Sunday Will potentially need to prescriptions for home f/u with [facility]ri[facility] or [facility] in 2 weeks Raine Morales Oct 22, 2016 08:06
[2016-10-22] MEDS: SODIUM CHLORIDE 0.9% FLUSH 5 ML FLUSH IVF SCH ×3 (08:10→21:11)
--- NOTE | 2016-10-22 10:29 | HHI.PR ---
Subjective Remarks Follow-up right hip fracture 10/20/16-patient had open reduction internal fixations of right hip, currently stable and pain control. 10/21/16-patient seen and examined, stable. Afebrile. 10/22/16-patient seen and examined complains of right hip soreness otherwise no other issues and afebrile. Objective Vitals Vital Signs Date Time Temp Pulse Resp B/P Pulse Ox O2 Delivery O2 Flow Rate FiO2 10/22/16 08:00 98.3 89 18 114/56 93 10/22/16 00:00 98.9 90 16 126/58 92 10/21/16 20:00 98.6 93 18 138/70 97 10/21/16 16:00 96.9 85 18 107/56 94 10/21/16 12:00 98.4 89 19 145/65 93 10/21/16 10:29 94 21 I/O 10/21/16 10/21/16 10/21/16 10/22/16 10/22/16 10/22/16 07:00 15:00 23:00 07:00 15:00 23:00 Intake Total 1281 ml 1265 ml 780 ml 480 ml Output Total 900 ml 900 ml Balance 381 ml 365 ml 780 ml 480 ml Intake Oral 480 ml 720 ml 780 ml 480 ml IV Total 801 ml 545 ml Output Urine Total 900 ml 900 ml # Voids 3 2 3 # Bowel Movements 0 0 Result Diagram: 10/21/16 0550 10/20/16 0340 Objective Remarks GENERAL: NAD SKIN: Warm and dry. HEAD: Normocephalic. EYES: No scleral icterus. No injection or drainage. NECK: Supple, trachea midline. No JVD or lymphadenopathy. CARDIOVASCULAR: Regular rate and rhythm without murmurs, gallops, or rubs. RESPIRATORY: Breath sounds equal bilaterally. No accessory muscle use. GASTROINTESTINAL: Abdomen soft, non-tender, nondistended. MUSCULOSKELETAL: No cyanosis, or edema. right hip repair-neurovascular intact BACK: Nontender without obvious deformity. No CVA tenderness. Procedures Right hip reduction and intramedullary nail fixation 10/20/16 A/P Problem List: (1) Closed right hip fracture ICD Code: S72.001A Status: Acute Assessment and Plan Right hip fracture:s/p Right hip reduction and intramedullary nail fixation 06/26. Management per orthopedic surgery, continue current postoperative care. PT to treat and eval. Incentive spirometer at bedside. Toe-touch weightbearing Chronic back pain secondary to lumbar CR arthritis: Continue home gabapentin. Asthma: Chronic, stable. Continue albuterol MDI as needed. O2 as needed. Anxiety: Chronic, stable. Continue Klonopin. GERD: Chronic, stable. Continue PPI. DVT prophylaxis: Lovenox Discharge Planning Discharge likely 10/23/16 to SNF versus [facility] Problem Qualifiers (1) Closed right hip fracture: Qualified Code: S72.001A - Closed right hip fracture, initial encounter Sb Bella MD Oct 22, 2016 10:29
[2016-10-22] MEDS: oxyCODONE/ACETAMINOPHEN 7.5 MG/325 MG TAB PO PRN ×3 (11:43→21:11)
[2016-10-22 12:00] VITALS: BP 120/59; PULSE 87; RESP 18; TEMP 96; O2SAT 94
[2016-10-22 16:00] VITALS: BP 124/66; PULSE 97; RESP 18; TEMP 99; O2SAT 93
[2016-10-22] MEDS: SODIUM CHLOR 0.9% 1000 ML INJ 1,000 ML IV SCH ×2 (16:30→21:11)
[2016-10-22 19:55] VITALS: BP 112/58; PULSE 91; RESP 18; TEMP 99; O2SAT 93
[2016-10-22] MEDS: clonazePAM 0.5 MG TAB PO SCH (21:11)
[2016-10-22] MEDS: SENNOSIDES 8.6 MG TAB PO SCH (21:13)
[2016-10-23] VITALS: BP 122/65; PULSE 104; RESP 18; TEMP 99.2; O2SAT 92
[2016-10-23] MEDS: oxyCODONE/ACETAMINOPHEN 7.5 MG/325 MG TAB PO PRN ×5 (01:53→21:52)
--- NOTE | 2016-10-23 06:48 | PD.ORT.PN ---
Subjective Subjective Remarks Having difficulty ambulating. We'll need to go to rehabilitation since her works all day Objective Vitals Vital Signs Date Time Temp Pulse Resp B/P Pulse Ox O2 Delivery O2 Flow Rate FiO2 10/23/16 00:00 99.2 104 18 122/65 92 10/22/16 19:55 99.0 91 18 112/58 93 10/22/16 16:00 99.0 97 18 124/66 93 10/22/16 12:00 96.0 87 18 120/59 94 10/22/16 08:00 98.3 89 18 114/56 93 I/O 10/22/16 10/22/16 10/22/16 10/23/16 10/23/16 10/23/16 07:00 15:00 23:00 07:00 15:00 23:00 Intake Total 480 ml 720 ml 720 ml 480 ml Balance 480 ml 720 ml 720 ml 480 ml Intake Oral 480 ml 720 ml 720 ml 480 ml # Voids 3 5 1 2 # Bowel Movements 0 1 0 0 Result Diagram: 10/21/16 0550 10/20/16 0340 Imaging Last 48 hours Impressions Hip X-Ray 10/20/16 0000 Signed Impressions: Service Date/Time: Thursday, October 20, 2016 09:54 - CONCLUSION: Anatomic alignment. Noel Holland MD FACR Procedures Right hip reduction and intramedullary nail fixation Objective Remarks RLE: dressings clean and dry. intact, Mild swelling and tenderness over right thigh/hip. No calf pain. Negative Herb's sign. Neurovascular intact. Assessment & Plan Problem List: (1) Closed right hip fracture Assessment and Plan 1) Right Intertroch fx s/p IMN - POD #3 Toe-touch weightbearing Lovenox/Xarelto for DVT prophylaxis Case management for discharge planning SNF Pain medication adjusted - oxycodone 7.5mg Q4 Progress rehabilitation. DC to rehabilitation when bed available Will potentially need to prescriptions for home f/u with [facility]ri[facility] or [facility] in 2 weeks WESLEY SOSA PA-C Oct 23, 2016 06:48
[2016-10-23] MEDS ORDERED: PERC7.5T13 PO (06:51)
[2016-10-23 08:00] VITALS: BP 109/69; PULSE 98; RESP 18; TEMP 97.9; O2SAT 92
[2016-10-23] MEDS: PANTOPRAZOLE SOD 40 MG DELAYED RELEASE TAB PO SCH (08:02)
[2016-10-23] MEDS: BISACODYL EC 5 MG TABEC PO SCH (08:02)
[2016-10-23] MEDS: SODIUM CHLORIDE 0.9% FLUSH 5 ML FLUSH IVF SCH ×2 (08:03→21:00)
[2016-10-23] MEDS: ENOXAPARIN SODIUM 30 MG/0.3 ML SYRINGE SQ SCH (08:03)
[2016-10-23] MEDS: DOCUSATE SODIUM 100 MG CAP PO SCH ×2 (08:03→21:52)
[2016-10-23] MEDS: GABAPENTIN 400 MG CAP PO SCH ×3 (08:03→16:24)
[2016-10-23] MEDS: CHOLECALCIFEROL (VIT D3) 5000 UNIT CAP PO SCH (08:03)
[2016-10-23] MEDS: CALCIUM/VITAMIN D 250 MG/125 U TAB PO SCH ×3 (08:03→16:24)
[2016-10-23] MEDS: clonazePAM 1 MG TAB PO SCH (08:03)
[2016-10-23 11:51] VITALS: BP 121/78; PULSE 87; RESP 18; TEMP 97.4; O2SAT 94
--- NOTE | 2016-10-23 13:18 | HHI.PR ---
Subjective Remarks Follow-up right hip fracture 10/20/16-patient had open reduction internal fixations of right hip, currently stable and pain control. 10/21/16-patient seen and examined, stable. Afebrile. 10/22/16-patient seen and examined complains of right hip soreness otherwise no other issues and afebrile. 10/23/16-patient seen and examined, stable and no acute event overnight. Clear for discharge by orthopedic surgery. Case discussed with patient case coordinator Objective Vitals Vital Signs Date Time Temp Pulse Resp B/P Pulse Ox O2 Delivery O2 Flow Rate FiO2 10/23/16 11:51 97.4 87 18 121/78 94 10/23/16 08:30 Room Air 10/23/16 08:00 97.9 98 18 109/69 92 10/23/16 00:00 99.2 104 18 122/65 92 10/22/16 19:55 99.0 91 18 112/58 93 10/22/16 16:00 99.0 97 18 124/66 93 I/O 10/22/16 10/22/16 10/22/16 10/23/16 10/23/16 10/23/16 07:00 15:00 23:00 07:00 15:00 23:00 Intake Total 480 ml 720 ml 720 ml 480 ml Balance 480 ml 720 ml 720 ml 480 ml Intake Oral 480 ml 720 ml 720 ml 480 ml # Voids 3 5 1 2 # Bowel Movements 0 1 0 0 Result Diagram: 10/21/16 0550 10/20/16 0340 Objective Remarks GENERAL: NAD SKIN: Warm and dry. HEAD: Normocephalic. EYES: No scleral icterus. No injection or drainage. NECK: Supple, trachea midline. No JVD or lymphadenopathy. CARDIOVASCULAR: Regular rate and rhythm without murmurs, gallops, or rubs. RESPIRATORY: Breath sounds equal bilaterally. No accessory muscle use. GASTROINTESTINAL: Abdomen soft, non-tender, nondistended. MUSCULOSKELETAL: No cyanosis, or edema. right hip repair-neurovascular intact BACK: Nontender without obvious deformity. No CVA tenderness. Procedures Right hip reduction and intramedullary nail fixation 10/20/16 A/P Problem List: (1) Closed right hip fracture ICD Code: S72.001A Status: Acute Assessment and Plan Right hip fracture:s/p Right hip reduction and intramedullary nail fixation 06/26. Management per orthopedic surgery, continue current care. PT to treat and eval. Incentive spirometer at bedside. Toe-touch weightbearing Chronic back pain secondary to lumbar CR arthritis: Continue home gabapentin. Asthma: Chronic, stable. Continue albuterol MDI as needed. O2 as needed. Anxiety: Chronic, stable. Continue Klonopin. GERD: Chronic, stable. Continue PPI. DVT prophylaxis: Lovenox Discharge Planning Discharge likely 10/23/16 to SNF versus [facility] Problem Qualifiers (1) Closed right hip fracture: Qualified Code: S72.001A - Closed right hip fracture, initial encounter Sb Bella MD Oct 23, 2016 13:18
--- NOTE | 2016-10-23 13:19 | HHI.DS ---
Discharge Summary Admission Date Oct 19, 2016 at 16:26 Discharge Date: Oct 23, 2016 Admitting Diagnosis right hip fracture (1) Closed right hip fracture ICD Code: S72.001A Procedures Right hip reduction and intramedullary nail fixation 10/20/16 Brief History - From Admission 56-year-old female with past medical history of OA, asthma, GERD, anxiety who presented with right hip pain after a fall today. The patient states that she was talking to somebody at work today, was walking backwards, tripped and landed on her right hip. She developed immediate, severe pain to her right hip. She denies any other injury, head trauma, or loss of consciousness. She denies any lower extremity numbness or tingling. The pain remained severe and she is requesting more pain medication. She has no other acute medical complaints at this time including nausea, vomiting, chest pain, shortness breath , abdominal pain, fever, chills, cough. Orthopedics was contacted from the ED who recommended admission, Nicole's traction, and plan for surgery tomorrow. CBC/BMP: 10/21/16 0550 10/20/16 0340 Significant Findings Laboratory Tests Test 10/21/16 05:50 Hemoglobin 9.0 GM/DL (11.6-15.3) Hematocrit 27.2 % (35.0-46.0) Imaging Last Impressions Hip X-Ray 10/20/16 0000 Signed Impressions: Service Date/Time: Thursday, October 20, 2016 09:54 - CONCLUSION: Anatomic alignment. Noel Holland MD FACR Hip and Pelvis X-Ray 10/19/16 0000 Signed Impressions: Service Date/Time: October 14:40 - CONCLUSION: Acute displaced intertrochanteric fracture of the right proximal femur. Gregory Deleon MD Chest X-Ray 10/19/16 0000 Signed Impressions: Service Date/Time: October 13:50 - CONCLUSION: 1. No acute cardiopulmonary disease. 2. Scoliosis of the thoracic spine. Gregory eDleon MD PE at Discharge GENERAL: NAD SKIN: Warm and dry. HEAD: Normocephalic. EYES: No scleral icterus. No injection or drainage. NECK: Supple, trachea midline. No JVD or lymphadenopathy. CARDIOVASCULAR: Regular rate and rhythm without murmurs, gallops, or rubs. RESPIRATORY: Breath sounds equal bilaterally. No accessory muscle use. GASTROINTESTINAL: Abdomen soft, non-tender, nondistended. MUSCULOSKELETAL: No cyanosis, or edema. right hip repair-neurovascular intact BACK: Nontender without obvious deformity. No CVA tenderness. Hospital Course Patient admitted with right hip fracture for which orthopedic surgery was consulted and underwent Right hip reduction and intramedullary nail fixation 06/26. Pain control was achieved throughout hospitalization. PT was consulted and patient was placed on Lovenox for DVT prophylaxis. She was continued on her treatment for anxiety as well as asthma. Vitals were monitored and patient' s condition improved prior to discharge. Pt Condition on Discharge: Stable Discharge Disposition: Rehab Inpatient Discharge Time: > 30 minutes Discharge Instructions DIET: Follow Instructions for: Heart Healthy Diet Activities you can perform: Regular-No Restrictions Follow up Referrals: Orthopedics - 11/03/16 @ [facility] with Jarad Bess MD PCP Follow-up - 2-3 Days New Medications: Cholecalciferol (Vitamin D3) 2,000 Unit Tab 2000 UNITS PO DAILY Nutritional Supplement Days 56 Ref 0 BOTTLE Ergocalciferol (Vitamin D) 50,000 Unit Cap 34585 UNITS PO Q7D Nutritional Supplement #8 Ref 0 CAP Oxycodone-Acetaminophen (Percocet) 7.5-325 mg Tab 1 TAB PO Q4H PRN PAIN #60 Ref 0 TAB Rivaroxaban (Xarelto) 10 Mg Tab 10 MG PO DAILY Blood Clot Prevention #14 Ref 0 TAB Walker with Front Wheels (Walker with Front Wheels) 1 Mis Mis 1 EA .ROUTE DIRECTED #1 Ref 0 EA Continued Medications: Albuterol 18 GM Inh (Ventolin Hfa 18 GM Inh) 90 Mcg/Act Aer 2 PUFF INH Q4-6H PRN SHORTNESS OF BREATH #1 Ref 0 INHALER Clonazepam (Clonazepam) 0.5 Mg Tab 0.5 MG PO HS #60 Ref 0 TAB Clonazepam (Clonazepam) 1 Mg Tab 1 MG PO DAILY #60 Ref [address] (Nexium) 40 Mg Capdr 40 MG PO DAILY Ref 0 CAP Gabapentin (Gabapentin) 800 Mg Tab 800 MG PO TID #90 Ref 0 TAB Sb Bella MD Oct 23, 2016 13:19
[2016-10-23 16:00] VITALS: BP 144/75; PULSE 94; RESP 18; TEMP 97.8; O2SAT 94
[2016-10-23 20:15] VITALS: BP 140/74; PULSE 89; RESP 19; TEMP 99.1; O2SAT 97
[2016-10-23] MEDS: SODIUM CHLOR 0.9% 1000 ML INJ 1,000 ML IV SCH (21:06)
[2016-10-23] MEDS: MAGNESIUM HYDROXIDE SUSP 30 ML CUP PO PRN (21:51)
[2016-10-23] MEDS: clonazePAM 0.5 MG TAB PO SCH (21:52)
[2016-10-23] MEDS: SENNOSIDES 8.6 MG TAB PO SCH (21:52)
[2016-10-24 00:18] VITALS: BP 114/60; PULSE 94; RESP 18; TEMP 98.3; O2SAT 94
[2016-10-24] MEDS: oxyCODONE/ACETAMINOPHEN 7.5 MG/325 MG TAB PO PRN ×3 (02:22→12:27)
[2016-10-24 04:11] VITALS: BP 118/68; PULSE 92; RESP 18; TEMP 97.5; O2SAT 95
--- NOTE | 2016-10-24 06:48 | PD.ORT.PN ---
Subjective Subjective Remarks Pain controlled. No new complaints. Compliant with weightbearing status Objective Vitals Vital Signs Date Time Temp Pulse Resp B/P Pulse Ox O2 Delivery O2 Flow Rate FiO2 10/24/16 04:11 97.5 92 18 118/68 95 10/24/16 00:18 98.3 94 18 114/60 94 10/23/16 20:15 99.1 89 19 140/74 97 10/23/16 16:00 97.8 94 18 144/75 94 10/23/16 11:51 97.4 87 18 121/78 94 10/23/16 08:30 Room Air 10/23/16 08:00 97.9 98 18 109/69 92 I/O 10/23/16 10/23/16 10/23/16 10/24/16 10/24/16 10/24/16 07:00 15:00 23:00 07:00 15:00 23:00 Intake Total 480 ml 660 ml Balance 480 ml 660 ml Intake Oral 480 ml 660 ml # Voids 2 7 # Bowel Movements 0 0 Result Diagram: 10/21/16 0550 10/20/16 0340 Imaging Last 48 hours Impressions Hip X-Ray 10/20/16 0000 Signed Impressions: Service Date/Time: Thursday, October 20, 2016 09:54 - CONCLUSION: Anatomic alignment. Noel Holland MD FACR Procedures Right hip reduction and intramedullary nail fixation Objective Remarks RLE: dressings clean and dry. intact, Mild swelling and tenderness over right thigh/hip. No calf pain. Negative Herb's sign. Neurovascular intact. Assessment & Plan Problem List: (1) Closed right hip fracture Assessment and Plan 1) Right Intertroch fx s/p IMN - POD #4 Toe-touch weightbearing Lovenox/Xarelto for DVT prophylaxis Case management for discharge planning SNF - alone all day long due to her working Pain medication adjusted - oxycodone 7.5mg Q4 DC to rehabilitation when bed available f/u with [facility] or [facility] in 2 weeks WESLEY SOSA PA-C Oct 24, 2016 06:48
[2016-10-24] MEDS: SODIUM CHLORIDE 0.9% FLUSH 5 ML FLUSH IVF SCH (06:58)
[2016-10-24] MEDS: SODIUM CHLOR 0.9% 1000 ML INJ 1,000 ML IV SCH (06:59)
[2016-10-24 08:00] VITALS: BP 160/85; PULSE 94; RESP 16; TEMP 96.6; O2SAT 95
[2016-10-24] MEDS: MAGNESIUM HYDROXIDE SUSP 30 ML CUP PO PRN (08:23)
[2016-10-24] MEDS: CALCIUM/VITAMIN D 250 MG/125 U TAB PO SCH ×2 (08:23→12:26)
[2016-10-24] MEDS: PANTOPRAZOLE SOD 40 MG DELAYED RELEASE TAB PO SCH (08:23)
[2016-10-24] MEDS: DOCUSATE SODIUM 100 MG CAP PO SCH (08:23)
[2016-10-24] MEDS: CHOLECALCIFEROL (VIT D3) 5000 UNIT CAP PO SCH (08:23)
[2016-10-24] MEDS: BISACODYL EC 5 MG TABEC PO SCH (08:23)
[2016-10-24] MEDS: GABAPENTIN 400 MG CAP PO SCH ×2 (08:23→12:26)
[2016-10-24] MEDS: ENOXAPARIN SODIUM 30 MG/0.3 ML SYRINGE SQ SCH (08:23)
[2016-10-24] MEDS: clonazePAM 1 MG TAB PO SCH (08:23)
--- NOTE | 2016-10-24 10:11 | HHI.PR ---
Subjective Remarks Follow-up right hip fracture 10/20/16-patient had open reduction internal fixations of right hip, currently stable and pain control. 10/21/16-patient seen and examined, stable. Afebrile. 10/22/16-patient seen and examined complains of right hip soreness otherwise no other issues and afebrile. 10/23/16-patient seen and examined, stable and no acute event overnight. Clear for discharge by orthopedic surgery. Case discussed with clinical case manager 10/24/16-patient seen and examined, stable and awaiting clearance from workman comp Objective Vitals Vital Signs Date Time Temp Pulse Resp B/P Pulse Ox O2 Delivery O2 Flow Rate FiO2 10/24/16 04:11 97.5 92 18 118/68 95 10/24/16 00:18 98.3 94 18 114/60 94 10/23/16 20:15 99.1 89 19 140/74 97 10/23/16 16:00 97.8 94 18 144/75 94 10/23/16 11:51 97.4 87 18 121/78 94 I/O 10/23/16 10/23/16 10/23/16 10/24/16 10/24/16 10/24/16 07:00 15:00 23:00 07:00 15:00 23:00 Intake Total 480 ml 660 ml 720 ml Balance 480 ml 660 ml 720 ml Intake Oral 480 ml 660 ml 720 ml # Voids 2 7 3 # Bowel Movements 0 0 0 Result Diagram: 10/21/16 0550 10/20/16 0340 Objective Remarks GENERAL: NAD SKIN: Warm and dry. HEAD: Normocephalic. EYES: No scleral icterus. No injection or drainage. NECK: Supple, trachea midline. No JVD or lymphadenopathy. CARDIOVASCULAR: Regular rate and rhythm without murmurs, gallops, or rubs. RESPIRATORY: Breath sounds equal bilaterally. No accessory muscle use. GASTROINTESTINAL: Abdomen soft, non-tender, nondistended. MUSCULOSKELETAL: No cyanosis, or edema. right hip repair-neurovascular intact BACK: Nontender without obvious deformity. No CVA tenderness. Procedures Right hip reduction and intramedullary nail fixation 10/20/16 A/P Problem List: (1) Closed right hip fracture ICD Code: S72.001A Status: Acute Assessment and Plan Right hip fracture:s/p Right hip reduction and intramedullary nail fixation 06/26. Management per orthopedic surgery, continue current care. PT to treat and eval. Toe-touch weightbearing Chronic back pain secondary to lumbar CR arthritis: Continue home gabapentin. Asthma: Chronic, stable. Continue albuterol MDI as needed. O2 as needed. Anxiety: Chronic, stable. Continue Klonopin. GERD: Chronic, stable. Continue PPI. DVT prophylaxis: Lovenox Discharge Planning Discharge likely 10/24/16 to SNF versus [place] Problem Qualifiers (1) Closed right hip fracture: Qualified Code: S72.001A - Closed right hip fracture, initial encounter Sb Bella MD Oct 24, 2016 10:11
[2016-10-24 12:23] VITALS: BP 120/69; PULSE 94; RESP 16; TEMP 97.8; O2SAT 89; O2SAT 98
[2016-10-30] MEDS ORDERED: WHEEMIS3 (22:22)
[2016-10-30] MEDS ORDERED: COMMODE 3-IN-11 MIS (22:22)
[2016-10-30] MEDS ORDERED: GETGO ROLLING W1 MI1 (22:22)
[2016-10-30] MEDS ORDERED: [UNRECOGNIZED DRUG - CODE] (22:22)
[2016-10-30] MEDS ORDERED: [UNRECOGNIZED DRUG - CODE] (22:22)
[2016-10-30] MEDS ORDERED: [UNRECOGNIZED DRUG - SUPPLY] (22:22)
[2016-10-30] MEDS ORDERED: FOLDING REACHER1 MIS (22:22)
[2016-11-03] MEDS ORDERED: TUB TRANSFER BO1 MIS (13:24)
[2016-11-07] MEDS ORDERED: DOCU1CAP39 PO (09:17)
[2016-11-07] MEDS ORDERED: OXYC-392 PO (09:17)
[2016-11-07] MEDS ORDERED: XARE10TA PO (09:17)
[2016-11-07] MEDS ORDERED: FLEE5TAB PO (09:17)
== END 2016-10-24 14:55 | DRG 482 ==
LOC: NEDAMB 13:33 → NEDA 16:26 → NEDH 19:40 → N06B 10-20 13:54
PROVIDERS: ADMIT Hospitalist; ATTEND Hospitalist
PROC: 0QS606Z Reposition Right Upper Femur with Intramedullary Internal Fixation Device, Open Approach (ICD-10-PCS; principal; 2016-10-20 09:02)
DX: S72.141A Displaced intertrochanteric fracture of right femur, initial encounter for closed fracture (principal); F41.9 Anxiety disorder, unspecified; F17.210 Nicotine dependence, cigarettes, uncomplicated; J45.909 Unspecified asthma, uncomplicated; M19.90 Unspecified osteoarthritis, unspecified site; R42 Dizziness and giddiness; K21.9 Gastro-esophageal reflux disease without esophagitis; W01.0XXA Fall on same level from slipping, tripping and stumbling without subsequent striking against object, initial encounter; Y93.01 Activity, walking, marching and hiking; Y92.89 Other specified places as the place of occurrence of the external cause; Y99.0 Civilian activity done for income or pay; M47.816 Spondylosis without myelopathy or radiculopathy, lumbar region; G89.29 Other chronic pain
CPT/HCPCS: 71010; 73502; 76000; 80048; 82306; 85014; 85018; 85025; 85610; 85730; 93005; 96361; 96374; 96375; C1713; J0690; J1100; J1170; J1200; J1580; J1650; J2060; J2250; J2270; J2405; J3010; J3370; J7030; J7050; J7120